=== PATIENT | female | born 1990 | race Caucasian/White ===

== ENCOUNTER 2023-02-22 10:08 | Outpatient (CLI) | payer BC, SELFPAY ==
--- NOTE | ~2023-02-22 | XR_ITS ---
Left foot Technique: AP and lateral standing views were obtained. Clinical History: Systemic lupus erythematosus Findings: No acute fracture or dislocation is seen. Osseous alignment is anatomic. Joint spaces are p reserved without erosive or degenerative change. Soft tissues are unremarkable. Impression: Unremarkable left foot radiographs. Reviewed, dictated and finalized at location . Impression: Unremarkable left foot radiographs.
--- NOTE | ~2023-02-22 | XR_ITS ---
Clinical Indication: Systemic lupus erythematosus PA and lateral views of the chest: Comparison: None Findings: The lungs are clear, without evidence of focal consolidation or pleural effusion. Cardiome diastinal silhouette is within normal limits. Bones and soft tissues are unremarkable. Impression: Normal chest. Reviewed, dictated and finalized at location . Impression: Normal chest.
--- NOTE | ~2023-02-22 | XR_ITS ---
Bilateral Hands Technique: Bilateral PA, oblique, and lateral views, and ball-catcher's view were obtained. Clinical History: Systemic lupus erythematosus Findings: No acute fracture or dislocation is seen. Osseous alignment is anatomic. Joint spaces are p reserved. Soft tissues are unremarkable. Impression: Unremarkable bilateral hands. Reviewed, dictated and finalized at location . Impression: Unremarkable bilateral hands.
--- NOTE | ~2023-02-22 | XR_ITS ---
Lumbosacral Spine: AP, oblique, and lateral views Clinical History: Pain, systemic lupus erythematosus Findings: The normal lordotic curve is maintained. The vertebral bodies and posterior elements are i ntact. The intervertebral disc spaces are preserved. The sacroiliac joints are normally outlined. Impression: No significant abnormality. Reviewed, dictated and finalized at [facility]. Impression: No significant abnormality.
--- NOTE | ~2023-02-22 | XR_ITS ---
Right foot Technique: AP and lateral standing views were obtained. Clinical History: Systemic lupus erythematosus Findings: No acute fracture or dislocation is seen. Osseous alignment is anatomic. Joint spaces are p reserved without erosive or degenerative change. Soft tissues are unremarkable. Impression: Unremarkable right foot radiographs. Reviewed, dictated and finalized at location . Impression: Unremarkable right foot radiographs.
--- NOTE | ~2023-02-22 | XR_ITS ---
EXAM: XR sacroiliac joints min 3V DATE: 02/22/2023 11:46 HISTORY: M32.9 - Systemic lupus erythematosus, unspecified . COMPARISON: None available. FINDINGS: Normal mineralization. No fracture or dislocation. No lytic or blastic lesion. Mild degene rative change in the bilateral hips. Lower lumbar degenerative disc disease. No erosion or periosteal change. Soft tissues within normal limits. IMPRESSION: Unremarkable sacroiliac joint radiograph findings. Reviewed, dictated and finalized at location K.
[2023-02-22 19:20] LABS: Basophils Absolute Auto 0.1 K/mm3 (0.0-0.1); Basophils Percent Auto 0.6 % (0.2-1.2); Eosinophils Absolute Auto 0.2 K/mm3 (0-0.3); Hematocrit 45.3 % (37.0-47.0); Hemoglobin 14.4 g/dL (12.0-15.0); Immature Granulocyte Absolute 0.02 K/mm3 (0.00-0.031); Immature Granulocyte Percent A 0.2 % (0-0.5); Lymphocytes Absolute Auto 2.09 K/mm3 (0.9-3.2); Mean Corpuscular HGB Conc 31.8 g/dl (32-36); Mean Corpuscular Hemoglobin 32.5 pg (26-34); Mean Corpuscular Volume 102.3 fl (80-100); Mean Platelet Volume 8.9 fl (7.4-10.4); Monocytes Absolute Auto 0.6 K/mm3 (0.1-0.6); Monocytes Percent Auto 7.3 % (2.6-8.5); Neutrophils Absolute Auto 5.1 K/mm3 (1.3-6.7); Neutrophils Percent Auto 62.9 % (45.5-73.1); Platelet Count Result 354 k/mm3 (150-375); Red Blood Count 4.43 M/mm3 (4.2-5.4); Red Cell Distribution Width 13.5 % (11.5-14.5)
[2023-02-22 20:04] LABS: Alanine Aminotransferase 42 U/L (6-35); Albumin Level 4.5 g/dL (3.5-5.1); Alkaline Phosphatase 65 U/L (38-126); Anion Gap 9 mmol/L (8-16); Aspartate Amino Transferase 70 U/L (14-36); Bilirubin,Total 0.4 mg/dL (0.2-1.3); Blood Urea Nitrogen 13 mg/dL (7-17); CRP 0.5 mg/dL (<1.0); Calcium 8.9 mg/dL (8.4-10.2); Carbon Dioxide 27 mmol/L (22-30); Chloride 102 mmol/L (98-107); Creatine Kinase 345 U/L (30-135); Estimated Glomerular Filt Rate > 60; Glucose 74 mg/dL (65-110); Potassium 3.8 mmol/L (3.4-5.0); Sodium 138 mmol/L (137-145)
[2023-02-22 20:12] LABS: Rheumatoid Factor < 12.0 IU/ML (<12)
[2023-02-22 20:15] LABS: Complement C3 116 mg/dL (88-165)
[2023-02-22 20:44] LABS: Vitamin D 25 Hydroxy 51.6 ng/mL
[2023-02-22 20:58] LABS: Hepatitis B Surface Antigen Negative (Negative)
[2023-02-22 21:12] LABS: Erythrocyte Sedimentation Rate 7 mm/hr (0-20)
[2023-02-22 21:15] LABS: Hepatitis B Surface Anti Res Negative; Hepatitis C Virus Antibody Negative (Negative)
[2023-02-23 04:08] LABS: Appearance Urine Clear (Clear); Bilirubin Urine Negative (Negative); Blood Urine Negative (Negative); Color Urine Yellow (Yellow); Glucose Urine UA Negative (Negative); Ketones Urine Negative (Negative); Leukocyte Esterase Ur Negative LEU/UL (Negative); Nitrate Urine Negative (Negative); Protein Urine Negative (Negative); Specific Grav Ur 1.025 (1.001-1.035); Urobilinogen Urine 0.2 mg/dL (<2.0)
[2023-02-23 07:16] LABS: Add Urine Microscopic? NO
[2023-02-25 20:31] LABS: SS-A <1.0; SS-B <1.0
[2023-02-25 20:31] LABS: SM Antibody <1.0; SM/RNP Antibody <1.0
[2023-02-26 11:29] LABS: Anti Cyclic Citrullinated Pept <16 Units (<20)
[2023-02-26 18:48] LABS: Anti Cardio Antibody IgM <2.0 MPL-U/mL (<20.0); Anti Cardiolipin Antibody IgA <2.0 APL-U/mL (<20.0); Anti Cardiolipin Antibody IgG <2.0 GPL-U/mL (<20.0)
[2023-02-26 21:34] LABS: Hexagonal Phase Confirm Negative (Negative); Lupus dRVVT Confirmation Negative (Negative); Lupus dRVVT Screen 48 sec (<=45); PTT-LA Screen 46 sec (<=40)
[2023-03-01 14:40] LABS: Anti Nuclear Antibody Titer 1:40 (Negative)
[2023-03-02 06:32] LABS: Aldolase 7.2 U/L (<=8.1)
[2023-03-11 15:13] LABS: Lupus dRVVT Additional Testing Indicated
== END 2023-02-22 10:09 | disposition home or self-care (01) ==
LOC: ANHBWCLAB 10:09
PROVIDERS: Visit Provider Internal Medicine
DX: M32.9 Systemic lupus erythematosus, unspecified (principal); Z79.899 Other long term (current) drug therapy; F17.200 Nicotine dependence, unspecified, uncomplicated; Z71.89 Other specified counseling; M19.90 Unspecified osteoarthritis, unspecified site; Z11.59 Encounter for screening for other viral diseases; M54.41 Lumbago with sciatica, right side; M54.42 Lumbago with sciatica, left side
CPT/HCPCS: 36415; 71046; 72110; 72202; 73130; 73620; 80053; 81003; 82085; 82306; 82550; 85025; 85597; 85598; 85613; 85652; 85730; 86038; 86039; 86140; 86146; 86147; 86160; 86200; 86225; 86235; 86430; 86481; 86706; 86803; 87340

== ENCOUNTER 2023-05-20 13:09 | Emergency (ER) | payer BC, SELFPAY ==
[2023-05-20 13:23] VITALS: BP 150/88; PULSE 93; RESP 18; TEMP 36.6; O2SAT 99
--- NOTE | 2023-05-20 13:48 | ED.URI ---
HPI - URI/Sore Throat General Chief Complaint: Upper Respiratory Infection Stated Complaint: upper respiratory Time Seen by Provider: 05/20/23 13:38 Source: patient Mode of arrival: ambulatory Limitations: no limitations History of Present Illness HPI Narrative: 33 year old female who presents to [facility] care with complaints of 2 day history of progressively worsening cough with expectoration of yellow brownish mucous, reports no known fevers but has felt hot and cold. Patient reports that she has felt a little wheezing at times but denies any acute dyspnea with no tachypnea noted SAO2 99% on room air. Patient reports that she has also noted some sinus congestion and drainage also reports that she has taken some allergy medication for her symptoms. Patient report past history of Bronchitis and Pneumonia and is daily cigarette smoker of up to 1ppd for 20 years. MD elicited complaint: cough (chest congestion), rhinorrhea and nasal congestion Pertinent past history: pneumonia and other (bronchitis,tobacco use) Onset (ago): day(s) (2) Consistency: constant Description of mucous: yellow, green and other (brown) Treatments prior to arrival: other (allergy medication) Related Data Home Medications Medication Instructions Recorded Confirmed sertraline 25 mg tablet 25 mg PO DAILY 12/07/22 05/20/23 Allergies Allergy/AdvReac Type Severity Reaction Status Date / Time No Known Allergies Allergy Verified 03/03/23 14:53 Review of Systems Review of Systems: CONSTITUTIONAL: Denies malaise, chills, sweats, or fever. EYES: Denies visual changes, redness, or discharge. ENT: Reports rhinorrhea, congestion, sinus pain, no otalgia and no sore throat. CARDIOVASCULAR: Denies chest pain, palpitations, or edema. RESPIRATORY: Reports productive cough.? Denies dyspnea.reports some wheezing GASTROINTESTINAL: Denies abdominal pain, nausea, vomiting, diarrhea SKIN: Denies rash or itching. MUSCULOSKELETAL: Denies myalgia. NEUROLOGIC: Denies headache. All systems reviewed & are unremarkable except as noted in HPI and below PMFSH Past Medical History Medical History (Updated 05/21/23 @ 10:58 by Maryann Pittman NP) Anxiety Bronchitis Current smoker Pneumonia Systemic Lupus Erythematosus Surgical History Surgical History (Updated 05/21/23 @ 10:57 by Maryann Pittman NP) History of knee surgery bilateral Social History Social History (Updated 05/21/23 @ 10:58 by ANGELINA Olmos Smoking status: Current every day smoker Alcohol intake: current Alcohol use details: social Substance use type: does not use Gender identity (if verbalized by the patient): Female Comments At time of signature, agree with nursing past medical, surgical, social and family history. There is no relevant family history pertinent to the presenting complaint Exam Narrative: GENERAL: Well-appearing, well-nourished, and in no acute distress. HEAD: Normocephalic EYES: PERRLA, conjunctivae clear ENT: Nares clear, turbinates edematous and erythematous, clear to light yellow discharge. Mucous membranes moist. TM pearly schulz with dull light reflex bilaterally; no tragal tenderness. Oropharynx erythematous without lesions. Tonsils not enlarged and without exudate, no drooling, no hoarseness, no trismus, uvula midline. NECK: Supple. No lymphadenopathy CHEST: Clear to auscultation, breath sounds equal. No wheezing, rhonchi, rales, or stridor. No respiratory distress, speaks in full sentences.productive cough SAO2 99% on room air HEART: Regular rate and rhythm. No murmur heard. SKIN: Warm, dry, no rash. NEURO: Alert and oriented x3. PSYCH: Normal mood and affect Course Course Emergency Course: Patient is aware of diagnosis, understands and agrees to treatment plan.? Anticipatory guidance given.? Patient agrees to follow-up as directed and is aware of reasons to seek care at the emergency department. Juan David
== END 2023-05-20 14:05 | disposition home or self-care (01) ==
PROVIDERS: Emergency Provider Registered Nurse
DX: J06.9 Acute upper respiratory infection, unspecified (principal); M32.9 Systemic lupus erythematosus, unspecified; F41.9 Anxiety disorder, unspecified; F17.210 Nicotine dependence, cigarettes, uncomplicated
CPT/HCPCS: 99213; G0463